=== PATIENT | female | born 1990 | race Asian ===

== ENCOUNTER 2024-02-22 11:03 | Emergency (ER) | payer BC, OTHER ==
[~2024-02-22] VITALS: Ht 160 cm; Wt 54.4 kg
[2024-02-22 11:24] VITALS: TEMP 98.3
[2024-02-22] MEDS: METOCLOPRAMIDE HCL 10 MG/2 ML VIAL IV ONE (11:30)
[2024-02-22 11:47] LABS: BASOPHILS % (AUTO) 0.7 % (0.0-2.0); EOSINOPHILS % (AUTO) 0.7 % (0.0-6.0); HEMATOCRIT 42 % (33-45); HEMOGLOBIN 13.9 g/dL (11.5-14.8); LYMPHOCYTES # (AUTO) 1.3 K/uL (0.8-4.8); LYMPHOCYTES % (AUTO) 25.6 % (20.0-44.0); MEAN CORPUSCULAR HEMOGLOBIN 28 PG (26.0-33.0); MEAN CORPUSCULAR HGB CONC 33 g/dl (31.0-36.0); MEAN CORPUSCULAR VOLUME 84 fL (82-100); MONOCYTES # (AUTO) 0.3 K/uL (0.1-1.30); MONOCYTES % (AUTO) 5.3 % (2.0-12.0); NEUTROPHILS # (AUTO) 3.5 K/uL (1.8-8.9); NEUTROPHILS % (AUTO) 67.7 % (43.0-81.0); PLATELET COUNT (AUTO) 311 K/uL (150-450); RED BLOOD CELL COUNT(AUTO) 5.03 MIL/uL (4.0-5.2); RED CELL DISTRIBUTION WIDTH 14.3 % (11.5-15.0); WHITE BLOOD COUNT (AUTO) 5.2 K/uL (4.3-11.0)
[2024-02-22 11:56] LABS: CALCIUM, SERUM 9.5 mg/dL (8.5-10.1); CREATININE 0.6 mg/dL (0.6-1.3); POTASSIUM 3.8 mmol/L (3.5-5.1)
[2024-02-22] MEDS: IV NS 0.9% 1,000 ML BAG IV ONE (12:01)
[2024-02-22] MEDS ORDERED: METOCLOPRAMIDE HCL 10 MG/2 ML VIAL ONE (12:04)
[2024-02-22 12:20] LABS: APPEARANCE,URINE CLEAR (CLEAR); BILIRUBIN,URINE NEGATIVE (NEGATIVE); BLOOD, URINE 2+ Ery/uL (NEGATIVE); COLOR,URINE YELLOW (YELLOW); KETONES,URINE NEGATIVE (NEGATIVE); LEUKOCYTE ESTERASE ,URINE NEGATIVE (NEGATIVE); NITRITE, URINE NEGATIVE (NEGATIVE); PROTEIN,URINE NEGATIVE (NEGATIVE); UGLUCOSE NEGATIVE (NEGATIVE); UROBILINOGEN,URINE 0.2 EU/dL (0.2)
[2024-02-22 12:24] LABS: PREGNANCY TEST URINE QUAL NEGATIVE (NEGATIVE)
[2024-02-22 12:33] LABS: ADD URINE CULTURE NO; BACTERIA,URINE None seen /HPF (None Seen); RBC,URINE 21-50 /HPF (0-2); WBC,URINE 0-2 /HPF (0-3)
[2024-02-22 15:38] VITALS: BP 125/79; O2SAT 98
== END 2024-02-22 15:38 | disposition home or self-care (01) ==
LOC: ER 11:03
DX: R51.9 Headache, unspecified (principal); R10.2 Pelvic and perineal pain
CPT/HCPCS: 99285; 96374; 70450; 96361; 85025; 80048; 84703; 81001; 36415; J2765; J7030